=== PATIENT | male | born 1980 | race Caucasian/White ===

== ENCOUNTER 2023-07-16 12:40 | Emergency (ER) | payer OTHER, SELFPAY ==
[2023-07-16 12:41] VITALS: BP 145/96; PULSE 88; RESP 16; TEMP 36.9; O2SAT 97; BMI 30.7
--- NOTE | 2023-07-16 13:20 | ED.EAR1 ---
HPI - Ear Problem General Chief complaint: Ear Stated complaint: HEAD INJURY Time Seen by Provider: 07/16/23 13:07 Source: patient Mode of arrival: walk-in History of Present Illness HPI Narrative: Patient is a 43-year-old male who presents to the emergency department for bleeding from the left ear after an injury just prior to arrival. Patient states he was throwing a baseball [id number] with another individual and turned his head, the ball hit him in the left ear. It was not struck with a baseball bat. He did not have any loss of consciousness, visual changes, nausea, vomiting, neck pain, peripheral paresthesias. He is noted to have a very small laceration to the left auricle but states he noted bleeding coming from the left external canal which concerned him. No other associated injuries. Unknown last tetanus Related Data Allergies Allergy/AdvReac Type Severity Reaction Status Date / Time No Known Drug Allergies Allergy Verified 07/16/23 12:45 Review of Systems ROS Constitutional Denies: fever or chills Eyes Denies: change in vision Ears, nose, mouth, and throat Denies: throat pain or nasal congestion Cardiovascular Denies: chest pain Respiratory Denies: shortness of breath or cough Gastrointestinal Denies: nausea or vomiting Musculoskeletal Denies: back pain Integumentary/Breast Denies: rash Neurological Reports: headache Hematologic/Lymphatic Denies: easy bruising or easy bleeding Exam Narrative Exam Narrative: Gen.: Awake, alert, in no distress Head: Normocephalic, atraumatic ENT: Moist mucous membranes; Right TM is clear, left TM is intact with no hemotympanums. There is a small abrasion with dried blood in the left external canal, no swelling or active bleeding noted. 0.3 cm laceration that is superficial, not able to be pulled apart or actively bleeding. No subcutaneous tissue involvement, this laceration is located on the left auricle just below the external canal. No auricular hematoma noted. C-spine is nontender with full range of motion Respiratory: No respiratory distress Extremities: Moves extremities equally, no injuries noted Psych: Normal mood and affect Neuro: No focal neuro deficit Skin: Warm, dry, intact Constitutional Vital Signs, click to edit/add: Last Vital Signs Temp 98.4 F 07/16/23 12:41 Pulse 88 07/16/23 12:41 Resp 16 07/16/23 12:41 BP 145/96 H 07/16/23 12:41 Pulse Ox 97 07/16/23 12:41 O2 Del Method Room Air 07/16/23 12:41 Course Vital Signs Vital signs: Vital Signs Temperature 98.4 F 07/16/23 12:41 Pulse Rate 88 07/16/23 12:41 Respiratory Rate 16 07/16/23 12:41 Blood Pressure 145/96 H 07/16/23 12:41 Pulse Oximetry 97 07/16/23 12:41 Oxygen Delivery Method Room Air 07/16/23 12:41 Temperature 98.4 F 07/16/23 12:41 Pulse Rate 88 07/16/23 12:41 Respiratory Rate 16 07/16/23 12:41 Blood Pressure 145/96 H 07/16/23 12:41 Pulse Oximetry 97 07/16/23 12:41 Oxygen Delivery Method Room Air 07/16/23 12:41 Medical Decision Making MDM Narrative Medical decision making narrative: Exam is consistent with a small abrasion in the left external canal as well as a small laceration to the auricle, there are no hemotympanums, no evidence of skull fracture, no significant neurosymptoms to warrant CT at this time. Patient was encouraged to watch for worsening headache, vomiting, changes in speech or memory. He was encouraged to apply bacitracin to the small outer ear laceration and he is given neomycin drops for the external canal to prevent otitis externa, there is no active bleeding from the external canal at this time. Follow-up with PCP and return to the ER if symptoms change or worsen. Medical Records Medical records reviewed: Yes I reviewed the patient's medical records Discharge Plan Discharge Chief Complaint: Ear Clinical Impression: Closed head injury, Laceration of left ear Patient Disposition: Home, Self-Care Time of Disposition Decision: 13:15 Condition: Good Instructions: Laceration (ED), Head Injury (ED) Additional Instructions: Use ear drops in the left ear canal twice a day for 5 days, you may notice bloody discharge from the left ear Referrals: Physician,Non-Staff, MD [Primary Care Provider] - 1 week Stand Alone Forms: Portal Instructions
[2023-07-16] MEDS: BACITRACIN 0.9 GM PACKET 1 PACKET TOPICAL (13:25)
[2023-07-16] MEDS: ADACEL DIPH,PERTUSS(ACELL),TET VAC/PF 0.5 ML ADULT SYRINGE IM (13:26)
[2023-07-16] MEDS: NEOMYCIN/POLYMYXIN B/HYDROCORTISONE OTIC SUSP 200 DROP/10 ML BOTTLE OT (13:26)
== END 2023-07-16 13:35 | disposition home or self-care (01) ==
PROVIDERS: Emergency Provider Emergency Medicine Emergency Medical Services
DX: S09.8XXA Other specified injuries of head, initial encounter (principal); S01.312A Laceration without foreign body of left ear, initial encounter; W21.03XA Struck by baseball, initial encounter; Z23 Encounter for immunization
CPT/HCPCS: 90471; 90715; 99284